=== PATIENT | female | born 1990 | race American Indian/Alaskan Native ===

== ENCOUNTER 2019-04-12 12:50 | Outpatient (CLI) | payer OTHER | END 2019-04-13 12:42 | disposition home or self-care (01) | LOC: OBS/DEL 12:50 | DX: O26.893 Other specified pregnancy related conditions, third trimester (principal); Z04.3 Encounter for examination and observation following other accident; Z34.03 Encounter for supervision of normal first pregnancy, third trimester; W18.39XA Other fall on same level, initial encounter; Y93.89 Activity, other specified; Y92.89 Other specified places as the place of occurrence of the external cause; Y99.8 Other external cause status ==

== ENCOUNTER 2019-04-30 17:40 | Outpatient (CLI) | payer OTHER | END 2019-04-30 18:16 | disposition home or self-care (01) | LOC: OBS/DEL 17:40 | DX: O47.1 False labor at or after 37 completed weeks of gestation (principal); Z34.03 Encounter for supervision of normal first pregnancy, third trimester ==

== ENCOUNTER 2019-05-02 04:58 | Inpatient (IN) | payer OTHER ==
[~2019-05-02] VITALS: Ht 167.6 cm; Wt 68.0 kg
[2019-05-02] MEDS ORDERED: OBSTETRIX DHA1 EACH PO (08:51)
== END 2019-05-04 17:12 | disposition home or self-care (01) | DRG 807 ==
LOC: OB/GYN 04:58 → LDR 04:58 → OB/GYN 20:39
PROVIDERS: ADMIT Obstetrics & Gynecology
PROC: 10E0XZZ Delivery of Products of Conception, External Approach (ICD-10-PCS; principal; 2019-05-02)
PROC: 4A0HXFZ Measurement of Products of Conception, Cardiac Rhythm, External Approach (ICD-10-PCS; 2019-05-02)
PROC: 4A033R1 Measurement of Arterial Saturation, Peripheral, Percutaneous Approach (ICD-10-PCS; 2019-05-02)
DX: O80 Encounter for full-term uncomplicated delivery (principal); Z37.0 Single live birth; Z3A.39 39 weeks gestation of pregnancy

== ENCOUNTER 2021-02-27 12:53 | Emergency (ER) | payer OTHER ==
[~2021-02-27] VITALS: Ht 167.6 cm; Wt 56.7 kg
[~2021-02-27 12:53] MED LIST: OBSTETRIX DHA1 EACH PO
== END 2021-02-27 19:48 | disposition home or self-care (01) ==
LOC: ER 12:53
DX: R42 Dizziness and giddiness (principal)

== ENCOUNTER 2021-09-05 09:00 | Outpatient (CLI) | payer OTHER | END 2021-09-05 09:15 | disposition home or self-care (01) | LOC: PPH VACUNA 09:00 | PROVIDERS: ATTEND Emergency Medicine Pediatric Emergency Medicine | DX: Z23 Encounter for immunization (principal) ==

== ENCOUNTER 2021-10-18 09:06 | Outpatient (CLI) | payer OTHER | END 2021-10-18 09:15 | disposition home or self-care (01) | LOC: LAB 09:06 | DX: U07.1 COVID-19 (principal) ==

== ENCOUNTER 2021-12-25 07:13 | Outpatient (CLI) | payer OTHER | END 2021-12-25 07:14 | disposition home or self-care (01) | LOC: LAB 07:13 | PROVIDERS: ATTEND General Practice | DX: Z20.828 Contact with and (suspected) exposure to other viral communicable diseases (principal) ==

== ENCOUNTER 2022-02-12 10:50 | Outpatient (CLI) | payer OTHER | END 2022-02-12 11:00 | disposition home or self-care (01) | LOC: RAD 10:50 | PROVIDERS: ATTEND Radiology Diagnostic Radiology | DX: M41.9 Scoliosis, unspecified (principal) ==

== ENCOUNTER 2022-08-01 08:00 | Outpatient (CLI) | payer OTHER | END 2022-08-01 08:05 | disposition home or self-care (01) | LOC: PPH VACUNA 08:00 | PROVIDERS: ATTEND Emergency Medicine Pediatric Emergency Medicine | DX: Z23 Encounter for immunization (principal) ==

== ENCOUNTER → 2022-10-29 | Outpatient (CLI) | payer OTHER | END | disposition home or self-care (01) | LOC: RAD 08:37 | DX: S42.321A Displaced transverse fracture of shaft of humerus, right arm, initial encounter for closed fracture (principal) ==

== ENCOUNTER 2022-12-17 13:29 | Outpatient (CLI) | payer OTHER | END 2022-12-17 13:32 | disposition home or self-care (01) | LOC: RAD 13:29 | DX: S42.321D Displaced transverse fracture of shaft of humerus, right arm, subsequent encounter for fracture with routine healing (principal) ==

== ENCOUNTER 2023-03-30 08:32 | Outpatient (CLI) | payer OTHER | END 2023-03-30 08:33 | disposition home or self-care (01) | LOC: LAB 08:32 | DX: Z01.812 Encounter for preprocedural laboratory examination (principal); S01.112A Laceration without foreign body of left eyelid and periocular area, initial encounter ==

== ENCOUNTER 2023-07-31 10:35 | Outpatient (CLI) | payer OTHER | END 2023-07-31 10:45 | disposition home or self-care (01) | LOC: PPH VACUNA 10:35 | PROVIDERS: ATTEND Emergency Medicine Pediatric Emergency Medicine | DX: Z23 Encounter for immunization (principal) ==

== ENCOUNTER 2023-08-10 13:30 | Outpatient (CLI) | payer OTHER | END 2023-08-10 13:36 | disposition home or self-care (01) | LOC: MAMO-SONO 13:30 | PROVIDERS: ATTEND Surgery | DX: N60.11 Diffuse cystic mastopathy of right breast (principal); N60.12 Diffuse cystic mastopathy of left breast ==

== ENCOUNTER 2023-08-24 07:45 | Emergency (ER) | payer OTHER ==
[~2023-08-24] VITALS: Ht 160 cm; Wt 49.9 kg
[2023-08-24 09:47] LABS: HEMATOCRIT 35.4 % (36.0-45.00); HEMOGLOBIN 12.1 g/dL (12.0-15.00); MEAN CELL VOLUME 85.8 fL (80.00-100.00); MEAN CORPUSCULAR HEMOGLOBIN 29.5 pg (27.00-32.0); MEAN CORPUSCULAR HGB CONC 34.3 g/dl (32.0-36.0); PLATELET COUNT 363 K/uL (150-450); RED BLOOD COUNT 4.12 M/uL (4.00-6.00)
[2023-08-24 10:06] LABS: URINE APPEARANCE Cloudy; URINE BILIRRUBIN Negative (NEGATIVE); URINE BLOOD Negative; URINE COLOR Yellow; URINE GLUCOSE Negative (NEGATIVE); URINE LEUKOCYTE Small; URINE NITRATE Negative; URINE PROTEIN Trace (NEGATIVE)
[2023-08-24 10:07] LABS: ERYTHROCYTE SEDIMENTATION RATE 15 mm/hr
[2023-08-24 10:10] LABS: URINE RBC 2.7 uL (0.0-20.8); URINE WBC 53.9 uL (0.0-23.2)
[2023-08-24 10:44] LABS: CALCIUM 9.3 mg/dL (8.5-10.1); CREATININE SERUM 0.56 mg/dL (0.55-1.02); GFR 124.67
[2023-08-24 11:00] LABS: C-REACTIVE PROTEIN 1.1 MG/DL (0.00-0.29)
[2023-08-24 11:31] LABS: URINE BACTERIA > 9821.5 uL (0.0-1933); URINE EPITHELIAL CELLS > 201.7 uL (0.0-38.8)
== END 2023-08-24 11:43 | disposition home or self-care (01) ==
LOC: ER 07:45
PROVIDERS: General Practice
DX: R21 Rash and other nonspecific skin eruption (principal)

== ENCOUNTER 2024-02-02 08:09 | Emergency (ER) | payer OTHER ==
[~2024-02-02] VITALS: Ht 167.6 cm; Wt 54.4 kg
[2024-02-02 09:11] LABS: HEMATOCRIT 35.8 % (36.0-45.00); HEMOGLOBIN 12.3 g/dL (12.0-15.00); MEAN CELL VOLUME 86.9 fL (80.00-100.00); MEAN CORPUSCULAR HGB CONC 34.5 g/dl (32.0-36.0); PLATELET COUNT 363 K/uL (150-450); RED BLOOD COUNT 4.12 M/uL (4.00-6.00); RED CELL DISTRIBUTION WIDTH 13.9 % (11.5-14.5)
[2024-02-02] MEDS ORDERED: KETOROLAC TROMETHAMINE 15 MG VIAL IM STA (09:50)
[2024-02-02] MEDS ORDERED: ADVIL DUAL ACT1 EACH PO (13:12)
== END 2024-02-02 14:10 | disposition home or self-care (01) ==
LOC: ER 08:09
PROVIDERS: Emergency Medicine
DX: M54.2 Cervicalgia (principal); Z20.822 Contact with and (suspected) exposure to COVID-19

== ENCOUNTER 2024-08-26 03:00 | Outpatient (CLI) | payer OTHER ==
[~2024-08-26 03:00] MED LIST changes: +ADVIL DUAL ACT1 EACH PO
== END 2024-08-26 03:15 | disposition home or self-care (01) ==
LOC: PPH VACUNA 03:00
PROVIDERS: ATTEND Emergency Medicine Pediatric Emergency Medicine
DX: Z23 Encounter for immunization (principal)

== ENCOUNTER 2025-08-29 15:00 | Outpatient (CLI) | payer OTHER | END 2025-08-29 15:10 | disposition home or self-care (01) | LOC: PPH VACUNA 15:00 | PROVIDERS: ATTEND Emergency Medicine Pediatric Emergency Medicine | DX: Z23 Encounter for immunization (principal) ==